=== PATIENT | female | born 1975 | race African-American/Black ===

== ENCOUNTER 2021-10-08 23:54 | Emergency (ER) | payer SELFPAY ==
[~2021-10-08] VITALS: Ht 175.3 cm; Wt 82.0 kg
[2021-10-09] MEDS ORDERED: ACETAMINOPHEN 325MG TABLET PO ONE (01:45)
[2021-10-09] MEDS ORDERED: TOPUD MT (03:21)
[2021-10-09 03:45] VITALS: BP 138/70
== END 2021-10-09 03:47 | disposition home or self-care (01) ==
LOC: ER 23:54
DX: S80.12XA Contusion of left lower leg, initial encounter (principal); Y04.0XXA Assault by unarmed brawl or fight, initial encounter; Y93.89 Activity, other specified; Y92.018 Other place in single-family (private) house as the place of occurrence of the external cause
CPT/HCPCS: 73590; 93971; 99284